=== PATIENT | female | born 1965 | race Caucasian/White ===

== ENCOUNTER 2020-01-11 19:26 | Emergency (ER) | payer BC ==
--- NOTE | 2020-01-11 20:20 | EDM.PDOC ---
ED HPI GENERAL MEDICAL PROBLEM - General Chief Complaint: Genitourinary Problem Stated Complaint: UTI SYMPTOMS Time Seen by Provider: 01/11/20 19:37 Source of Information: Reports: Patient - History of Present Illness Onset: Sudden Onset Date: 01/11/20 Onset Time: 17:00 Duration: Getting Worse Location: Reports: Abdomen Quality: Reports: Burning (dysuria) Severity: Moderate Improves with: Reports: None Worsens with: Reports: None Associated Symptoms: Reports: No Other Symptoms - Related Data Allergies Allergy/AdvReac Type Severity Reaction Status Date / Time No Known Allergies Allergy Verified 01/11/20 19:58 Home Meds: Home Meds Escitalopram Oxalate [Lexapro] 10 mg PO DAILY 01/11/20 [History] Past Medical History [employer] History: Reports: Psychiatric History: Reports: Anxiety - Infectious Disease History Infectious Disease History: Reports: Chicken Pox, Shingles - Past Surgical History Female Surgical History: Reports: Section Musculoskeletal Surgical History: Reports: Other (See Below) Other Musculoskeletal Surgeries/Procedures:: bilat foot surgery Social & Family History - Tobacco Use Smoking Status *Q: Never Smoker - Caffeine Use Caffeine Use: Reports: Coffee - Alcohol Use Days Per Week of Alcohol Use: 4 Number of Drinks Per Day: 2 Total Drinks Per Week: 8 - Recreational Drug Use Recreational Drug Use: No ED ROS GENERAL - Review of Systems Review Of Systems: See Below Constitutional: Reports: Other (dysuria.) HEENT: Reports: No Symptoms Respiratory: Reports: No Symptoms Cardiovascular: Reports: No Symptoms Endocrine: Reports: No Symptoms GI/Abdominal: Reports: No Symptoms : Reports: Dysuria, Frequency, Hematuria, Pain, Urgency Musculoskeletal: Reports: No Symptoms Skin: Reports: No Symptoms Neurological: Reports: No Symptoms Psychiatric: Reports: No Symptoms Hematologic/Lymphatic: Reports: No Symptoms Immunologic: Reports: No Symptoms ED EXAM, GI/ABD - Physical Exam Exam: See Below Exam Limited By: No Limitations General Appearance: Alert, WD/WN, No Apparent Distress Eyes: Bilateral: Normal Appearance Respiratory/Chest: No Respiratory Distress, Lungs Clear, Normal Breath Sounds Cardiovascular: Regular Rate, Rhythm, No Murmur GI/Abdominal Exam: Normal Bowel Sounds, Soft, Non-Tender (Female) Exam: Deferred Rectal (Female) Exam: Deferred Back Exam: Normal Inspection, Full Range of Motion. No: CVA Tenderness (R), CVA Tenderness (L) Extremities: Normal Inspection, Normal Range of Motion, Non-Tender, Normal Capillary Refill, No Pedal Edema Neurological: No Motor/Sensory Deficits Psychiatric: Normal Affect, Normal Mood Lymphatic: No Adenopathy Course - Vital Signs Last Recorded V/S: Last Vital Signs Temp 35.6 C L 01/11/20 19:48 Pulse 81 01/11/20 19:48 Resp 16 01/11/20 19:48 BP 146/84 H 01/11/20 19:48 Pulse Ox 98 01/11/20 19:48 - Orders/Labs/Meds Orders: Active Orders 24 hr Category Date Time Status CULTURE URINE [RM] Urgent Lab 01/11/20 19:37 Received Labs: Laboratory Tests 01/11/20 Range/Units 19:37 Urine Color Red A (YELLOW) Urine Appearance Cloudy A (CLEAR) Urine pH 5.5 (5.0-8.0) Ur Specific [place] >= 1.030 (1.008-1.030) Urine Protein >=300 H (NEGATIVE) mg/dL Urine Glucose (UA) Negative (NEGATIVE) mg/dL Urine Ketones Negative (NEGATIVE) mg/dL Urine Occult Blood Large H (NEGATIVE) Urine Nitrite Negative (NEGATIVE) Urine Bilirubin Negative (NEGATIVE) Urine Urobilinogen 0.2 (0.2-1.0) EU/dL Ur Leukocyte Esterase Trace H (NEGATIVE) Urine RBC Packed H (0-5) Urine WBC 20-30 H (0-5) Ur Epithelial Cells Not seen Urine Bacteria Rare Meds: Medications Discontinued Medications Generic Name Dose Route Start Last Admin Trade Name Freq PRN Reason Stop Dose Admin Phenazopyridine HCl 190 mg 01/11/20 20:24 Urinary Pain Relief PO 01/11/20 20:25 ONETIME ONE Departure - Departure Time of Disposition: 20:30 Disposition: Home, Self-Care 01 Condition: Good Clinical Impression: UTI, Urinary tract infectious disease - Discharge Information *PRESCRIPTION DRUG MONITORING PROGRAM REVIEWED*: Not Applicable *COPY OF PRESCRIPTION DRUG MONITORING REPORT IN PATIENT YONATAN: Not Applicable Instructions: Urinary Tract Infection, Adult, [id number] Referrals: PCP,None [Primary Care Provider] - Forms: ED Department Discharge Care Plan Goals: Urinary Tract Infection (bladder infection) -Septra DS one in evening and morning til gone -Pyridium one three times a day as needed for bladder pain -Tylenol or Motrin for pain or fever -drink 8 glasses or more of water per -urine culture pending -return to ER if has increase pain, fever, chills, nausea, vomiting, rash or not improved. Sepsis Event Note (ED) - Focused Exam Vital Signs: Vital Signs Temp Pulse Resp BP Pulse Ox 01/11/20 19:48 35.6 C L 81 16 146/84 H 98 - Problem List & Annotations (1) UTI, Urinary tract infectious disease SNOMED Code(s): 80708810 Code(s): N39.0 - URINARY TRACT INFECTION, SITE NOT SPECIFIED Status: Acute Priority: High Current Visit: Yes - Problem List Review Problem List Initiated/Reviewed/Updated: Yes - My Orders Last 24 Hours: My Active Orders 01/11/20 19:37 CULTURE URINE [RM] Urgent - Assessment/Plan Last 24 Hours: My Active Orders 01/11/20 19:37 CULTURE URINE [RM] Urgent Plan: Urinary Tract Infection (bladder infection) -Septra DS one in evening and morning til gone -Pyridium one three times a day as needed for bladder pain -Tylenol or Motrin for pain or fever -drink 8 glasses or more of water per -urine culture pending -return to ER if has increase pain, fever, chills, nausea, vomiting, rash or not improved.
[2020-01-11] MEDS ORDERED: Phenazopyridine 95 MG Tab PO ONE (20:24)
--- NOTE | 2020-01-11 20:25 | EDM.PDOC ---
ED HPI GENERAL MEDICAL PROBLEM - General Chief Complaint: Genitourinary Problem Stated Complaint: UTI SYMPTOMS Time Seen by Provider: 01/11/20 19:37 - Related Data Allergies Allergy/AdvReac Type Severity Reaction Status Date / Time No Known Allergies Allergy Verified 01/11/20 19:58 Home Meds: Home Meds Escitalopram Oxalate [Lexapro] 10 mg PO DAILY 01/11/20 [History] Past Medical History [employer] History: Reports: Psychiatric History: Reports: Anxiety - Infectious Disease History Infectious Disease History: Reports: Chicken Pox, Shingles - Past Surgical History Female Surgical History: Reports: Section Musculoskeletal Surgical History: Reports: Other (See Below) Other Musculoskeletal Surgeries/Procedures:: bilat foot surgery Social & Family History - Tobacco Use Smoking Status *Q: Never Smoker - Caffeine Use Caffeine Use: Reports: Coffee - Alcohol Use Days Per Week of Alcohol Use: 4 Number of Drinks Per Day: 2 Total Drinks Per Week: 8 - Recreational Drug Use Recreational Drug Use: No Course - Vital Signs Last Recorded V/S: Last Vital Signs Temp 35.6 C L 01/11/20 19:48 Pulse 81 01/11/20 19:48 Resp 16 01/11/20 19:48 BP 146/84 H 01/11/20 19:48 Pulse Ox 98 01/11/20 19:48 - Orders/Labs/Meds Orders: Active Orders 24 hr Category Date Time Status CULTURE URINE [RM] Urgent Lab 01/11/20 19:37 Received Phenazopyridine [Urinary Pain Relief] Med 01/11/20 20:24 Once 190 mg PO ONETIME ONE Medication Orders Phenazopyridine HCl (Urinary Pain Relief) 190 mg PO ONETIME ONE Stop: 01/11/20 20:25 Labs: Laboratory Tests 01/11/20 Range/Units 19:37 Urine Color Red A (YELLOW) Urine Appearance Cloudy A (CLEAR) Urine pH 5.5 (5.0-8.0) Ur Specific [place] >= 1.030 (1.008-1.030) Urine Protein >=300 H (NEGATIVE) mg/dL Urine Glucose (UA) Negative (NEGATIVE) mg/dL Urine Ketones Negative (NEGATIVE) mg/dL Urine Occult Blood Large H (NEGATIVE) Urine Nitrite Negative (NEGATIVE) Urine Bilirubin Negative (NEGATIVE) Urine Urobilinogen 0.2 (0.2-1.0) EU/dL Ur Leukocyte Esterase Trace H (NEGATIVE) Urine RBC Packed H (0-5) Urine WBC 20-30 H (0-5) Ur Epithelial Cells Not seen Urine Bacteria Rare Meds: Medications Generic Name Dose Route Start Last Admin Trade Name Jessica PRN Reason Stop Dose Admin Phenazopyridine HCl 190 mg 01/11/20 20:24 Urinary Pain Relief PO 01/11/20 20:25 ONETIME ONE Departure - Departure Disposition: Home, Self-Care 01 Condition: Good Clinical Impression: UTI, Urinary tract infectious disease - Discharge Information *PRESCRIPTION DRUG MONITORING PROGRAM REVIEWED*: Not Applicable *COPY OF PRESCRIPTION DRUG MONITORING REPORT IN PATIENT YONATAN: Not Applicable Instructions: Urinary Tract Infection, Adult, [id number] Referrals: PCP,None [Primary Care Provider] - Forms: ED Department Discharge Care Plan Goals: Urinary Tract Infection (bladder infection) -Septra DS one in evening and morning til gone -Pyridium one three times a day as needed for bladder pain -Tylenol or Motrin for pain or fever -drink 8 glasses or more of water per -urine culture pending -return to ER if has increase pain, fever, chills, nausea, vomiting, rash or not improved. Sepsis Event Note (ED) - Focused Exam Vital Signs: Vital Signs Temp Pulse Resp BP Pulse Ox 01/11/20 19:48 35.6 C L 81 16 146/84 H 98 - Problem List & Annotations (1) UTI, Urinary tract infectious disease SNOMED Code(s): 07170761 Code(s): N39.0 - URINARY TRACT INFECTION, SITE NOT SPECIFIED Status: Acute Priority: High Current Visit: Yes - My Orders Last 24 Hours: My Active Orders 01/11/20 19:37 CULTURE URINE [RM] Urgent 01/11/20 20:24 Phenazopyridine [Urinary Pain Relief] 190 mg PO ONETIME ONE - Assessment/Plan Last 24 Hours: My Active Orders 01/11/20 19:37 CULTURE URINE [RM] Urgent 01/11/20 20:24 Phenazopyridine [Urinary Pain Relief] 190 mg PO ONETIME ONE
== END 2020-01-11 20:39 | disposition home or self-care (01) ==
LOC: JP.ED 19:26
DX: N39.0 Urinary tract infection, site not specified (principal); F41.9 Anxiety disorder, unspecified; Z79.899 Other long term (current) drug therapy
CPT/HCPCS: 81001; 87086; 99283; A9270